=== PATIENT | male | born 2000 | race Two or more races ===

== ENCOUNTER 2019-01-24 18:23 | Emergency (ER) | payer SELFPAY ==
[2019-01-24 19:06] LABS: ABSOLUTE BASOPHILS # (AUTO) 0.1 10^3/uL (0.0-0.2); ABSOLUTE EOSINOPHILS # (AUTO) 0.1 10^3/uL (0.0-0.6); ABSOLUTE LYMPHOCYTES (AUTO) 1.2 10^3/uL (0.5-4.7); ABSOLUTE MONOCYTES (AUTO) 1.1 10^3/uL (0.1-1.4); ABSOLUTE NEUT (AUTO) 14.7 10^3/uL (1.7-8.2); BASOPHILS % (AUTO) 0.3 % (0-2); EOSINOPHILS % (AUTO) 0.5 % (0-6); HEMATOCRIT 45.6 % (37.9-51.0); HEMOGLOBIN 15.6 g/dL (13.5-17.0); LYMPHOCYTES % (AUTO) 7.1 % (13-45); MEAN CORPUSCULAR HEMOGLOBIN 28.4 pg (27.0-33.4); MEAN CORPUSCULAR HGB CONC 34.2 g/dL (32.0-36.0); MEAN CORPUSCULAR VOLUME 83 fl (80-97); MONOCYTES % (AUTO) 6.3 % (3-13); PLATELET COUNT 377 10^3/uL (150-450); RED BLOOD COUNT 5.49 10^6/uL (4.35-5.55); RED CELL DISTRIBUTION WIDTH 12.8 % (11.5-14.0); SEGMENTED NEUTROPHILS % (AUTO) 85.8 % (42-78); TOTAL CELLS COUNTED % (AUTO) 100 %; WHITE BLOOD COUNT 17.1 10^3/uL (4.0-10.5)
[2019-01-24] MEDS ORDERED: DIPH/PERTUSS(ACELL)/TETANUS VAC/PF 0.5 ML SYR (>=10YO) IM ONE (19:08)
[2019-01-24 19:10] LABS: APPEARANCE,URINE CLOUDY; BILIRUBIN,URINE NEGATIVE (NEGATIVE); COLOR,URINE YELLOW; GLUCOSE, URINE NEGATIVE (NEGATIVE); KETONES,URINE NEGATIVE (NEGATIVE); LEUKOCYTE ESTERASE,URINE NEGATIVE (NEGATIVE); NITRITE,URINE NEGATIVE (NEGATIVE); PROTEIN,URINE 100 mg/dL (NEGATIVE); URINE SPECIFIC GRAVITY 1.016; UROBILINOGEN,URINE NEGATIVE mg/dL (<2.0)
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
[2019-01-24 19:25] LABS: URINE AMPHETAMINES SCREEN NEGATIVE; URINE BARBITURATES SCREEN NEGATIVE; URINE BENZODIAZEPINES SCREEN NEGATIVE; URINE COCAINE SCREEN NEGATIVE; URINE MARIJUANA (THC) SCREEN NEGATIVE; URINE METHADONE SCREEN NEGATIVE; URINE PHENCYCLIDINE SCREEN NEGATIVE
[2019-01-24 19:32] LABS: ALBUMIN 5.1 g/dL (3.7-5.6); ALKALINE PHOSPHATASE 126 U/L (65-260); ANION GAP 14 (5-19); ASPARTATE AMINO TRANSFERASE 47 U/L (10-45); BILIRUBIN,DIRECT 0.5 mg/dL (0.0-0.4); BILIRUBIN,TOTAL 1.5 mg/dL (0.2-1.3); BLOOD UREA NITROGEN 13 mg/dL (7-20); CALCIUM 10.6 mg/dL (8.4-10.2); CARBON DIOXIDE 23 mmol/L (22-30); CHLORIDE 106 mmol/L (98-107); GLUCOSE 101 mg/dL (75-110); POTASSIUM 4.5 mmol/L (3.6-5.0); TOTAL PROTEIN 8.7 g/dL (6.3-8.2)
[2019-01-24 19:36] LABS: ACETAMINOPHEN < 10 ug/mL (10-30); ALCOHOL < 10 mg/dL (NONE DETECTED); SALICYLATE < 1.0 mg/dL (2.0-20.0)
[2019-01-24] MEDS ORDERED: NORMAL SALINE 1000 ML 1,000 ML IV ONE (20:12)
[2019-01-25 01:59] LABS: CHLAM PCR NOT DETECTED (NOT DETECT)
--- NOTE | 2019-01-25 15:29 | PSYCHOLOGICAL NOTE ---
Psych Note - Psych Note Date seen by psych provider: 01/25/19 Time seen by psych provider: 08:30 Psych Note: Reason For Consult:Suicidal ideation Consent Permissions: Patient is alert and orientated to person, place, time and circumstance. Mood is euthymic with congruent affect as evidenced by smiling and engaging with clinical. Patient reports chronic passive suicidal ideation with suicidal gestures yesterday. He denies homicidal ideation. Delusions are absent and behaviors congruent with an intact reality based presentation I organized and linear thought process. Eye contact is well-maintained. Conversational speech is within normal rate, tone and prosody. Intellectual abilities appear to be within the average range. Attention and concentration are good. Insight, judgment, impulse control are fair. Diagnosis: Major Depressive Disorder Medication recommendations per [facility]'s contracted psychiatrist Dr. Tab CHOWDHURY are as follows No medication recommendations at this time Impression\\plan: Patient is recommended for rescind of IVC and is cleared from acute psychiatric services. Patient reports chronic passive suicidal ideation i.e. no plans means or intent for the last 6 years. He confirms it of engaging in suicidal gestures yesterday during arguments with his girlfriend. Patient demonstrates forward thinking in discussing how he is currently working and going to college to get his associates in art. He would plans to transfer after 2 years to University possibly in [place]. Patient reports that he would love to get a dream job as a [employer] or or "twitch streamer.... Something with videogames...I love video games." Patient identifies his girlfriend as being a support for him and plans to return to her home. Dr. Ansari was consulted to care management of this patient; attending physicians in agreement with recommendations and disposition.
--- NOTE | 2019-01-25 17:12 | ER Document Report ---
Doctor's Note Notes: 01/25/19 17:11 Rounds: Chart reviewed and patient interviewed. Patient being evaluated for suicidal thoughts. Vital signs are all normal. Lab studies were normal with the exception of a white count of 17,100, creatinine of 1.45, and a bilirubin level 1.5. Patient has no indications of infection anywhere. Do not feel his leukocytosis is clinically significant. Patient appears to be medically stable for transfer or discharge. Elvira Perdue MD
[2019-01-25 17:22] VITALS: BP 112/70
--- NOTE | 2019-01-26 18:31 | EKG REPORT ---
SEVERITY:- NORMAL ECG - SINUS RHYTHM : Confirmed by: Christiane Ruiz 26-Jan-2019 18:30:17
== END 2019-01-25 17:32 | disposition home or self-care (01) ==
LOC: ER 18:23
DX: R45.851 Suicidal ideations (principal); F32.9 Major depressive disorder, single episode, unspecified; Z23 Encounter for immunization
CPT/HCPCS: 36415; 80053; 80307; 81001; 83690; 85025; 87491; 87591; 90471; 90715; 93005; 93010; 99285